=== PATIENT | male | born 1975 | race Caucasian/White ===

== ENCOUNTER 2018-06-09 22:24 | Inpatient (IN) | payer BC ==
[2018-06-09 22:40] LABS: URINE BLOOD (Dip) POC 2+ (NEGATIVE); URINE GLUCOSE (Dip) POC Negative (NEGATIVE); URINE KETONES (Dip) POC 1+ (NEGATIVE); URINE LEUKOCYTE EST (Dip) POC Negative (NEGATIVE); URINE NITRITE (Dip) POC Negative (NEGATIVE); URINE TOTAL PROTEIN POC Negative (NEGATIVE)
[2018-06-09 22:40] LABS: URINE PH (Dip) POC 5.5 (5.0-8.5)
[2018-06-09] MEDS: SOD CHLORIDE 0.9% 1,000 ML IV (22:46)
[2018-06-09] MEDS: morphine 4 MG/ML VIAL IV (22:46)
[2018-06-09] MEDS: ONDANSETRON 4 MG INJ IV ×2 (22:46→23:22)
[2018-06-09 22:52] LABS: ADD MAN DIFF? NO
[2018-06-09 22:59] LABS: ADD UMIC YES; UR ASCORBIC ACID NEGATIVE (NEGATIVE); UR BILIRUBIN (Dip) NEGATIVE (NEGATIVE); UR BLOOD (Dip) 2+ mg/dL (NEGATIVE); UR CLARITY CLEAR (CLEAR); UR COLOR YELLOW (YELLOW); UR GLUCOSE (Dip) NEGATIVE (NEGATIVE); UR KETONES (Dip) 1+ mg/dL (NEGATIVE); UR LEUKOCYTE ESTERASE (Dip) NEGATIVE Leu/ul (NEGATIVE); UR NITRITE (Dip) NEGATIVE (NEGATIVE); UR RBC 1 /HPF (0-5); UR SPECIFIC GRAVITY (Dip) 1.017 (1.003-1.030); UR TOTAL PROTEIN (Dip) NEGATIVE (NEGATIVE); UR UROBILINOGEN (Dip) NEGATIVE (NEGATIVE); UR WBC 0 /HPF (0-5)
[2018-06-09] MEDS: HYDROmorphONE 1 MG/ML SYG IV (23:22)
[2018-06-09 23:28] LABS: WHITE BLOOD COUNT 9.1 10^3/ul (4.8-10.8)
[2018-06-09 23:28] LABS: HEMATOCRIT 41.1 % (42.0-52.0); RED BLOOD COUNT 4.88 10^6/ul (4.70-6.10)
[2018-06-09 23:29] LABS: MEAN CORPUSCULAR HEMOGLOBIN 29.5 pg (29.0-33.0); MEAN CORPUSCULAR VOLUME 84.2 fl (82.0-101.0)
[2018-06-09 23:30] LABS: BASOPHILS % 0.3 % (0.0-2.0); EOSINOPHILS % 0.7 % (0.0-7.0); LYMPHOCYTES % 11.6 % (15.0-51.0); MEAN PLATELET VOLUME 9.8 fl (7.4-10.4); MONOCYTES % 6.7 % (0.0-11.0); NEUTROPHIL # 7.3 10^3/ul (1.6-7.5); NEUTROPHILS % 80.4 % (39.0-77.0); PLATELET COUNT 246 10^3/UL (140-415); RED CELL DISTRIBUTION WIDTH 12.6 % (11.5-14.5)
[2018-06-09 23:31] LABS: EOSINOPHILS # 0.1 10^3/ul (0.0-0.5); LYMPHOCYTES # 1.1 10^3/ul (0.8-2.9); MONOCYTE # 0.6 10^3/ul (0.3-0.9)
[2018-06-09 23:35] LABS: HEMOGLOBIN 14.4 g/dl (14.0-18.0)
[2018-06-09 23:41] LABS: ALBUMIN 5.2 g/dl (3.3-4.9); ALKALINE PHOSPHATASE 71 IU/L (42-121); ANION GAP 16 (8-16); ASPARTATE AMINO TRANSFERASE 68 IU/L (15-46); BILIRUBIN,INDIRECT 0.7 mg/dl (0-1.1); BILIRUBIN,TOTAL 0.7 mg/dl (0.2-1.3); BLOOD UREA NITROGEN 17 mg/dl (7-20); CALCIUM 9.2 mg/dl (8.4-10.2); CARBON DIOXIDE 23 mmol/L (21-31); CHLORIDE 104 mmol/L (97-110); CREATININE 0.88 mg/dl (0.61-1.24); GLUCOSE 104 mg/dl (70-220); LIPASE 166 U/L (23-300); SODIUM 138 mmol/L (135-144); TOTAL PROTEIN 9.5 g/dl (6.1-8.1)
[2018-06-09 23:51] LABS: TROPONIN-I < 0.012 ng/ml (0.000-0.120)
[2018-06-09 23:53] LABS: ALANINE AMINOTRANSFERASE 36 IU/L (13-69)
[2018-06-10] MEDS: LIDOCAINE/MYLANTA 40 ML BTL PO (00:28)
[2018-06-10] MEDS: HYDROmorphONE 0.5 MG/0.5 ML SYG IV ×2 (01:10→06:41)
[2018-06-10] MEDS ORDERED: ACETAMINOPHEN 500 MG TAB (01:14)
[2018-06-10] MEDS: ACETAMINOPHEN 500 MG TAB PO (01:25)
[2018-06-10] MEDS: SOD CHLORIDE 0.9% 1,000 ML IV ×2 (01:26→05:56)
[2018-06-10] MEDS: MEROPENEM 1 GM/50ML(PMX) 50 ML IVPB (02:56)
[2018-06-10] MEDS: METOCLOPRAMIDE 10 MG INJ IV (05:21)
[2018-06-10] MEDS: HYDROmorphONE 1 MG/ML SYG IV (05:21)
[2018-06-10] MEDS: ONDANSETRON 4 MG INJ IV ×2 (06:30→06:40)
[2018-06-10] MEDS ORDERED: NACL 0.9% 3 ML SYG IV (08:00)
[2018-06-10] MEDS ORDERED: morphine 2 MG INJ IV (08:00)
[2018-06-10] MEDS ORDERED: DOCUSATE SODIUM 100 MG CAP PO (08:00)
[2018-06-10] MEDS ORDERED: ONDANSETRON 4 MG INJ IV (08:00)
[2018-06-10] MEDS ORDERED: NIACIN 500 MG TAB PO (09:00)
[2018-06-10] MEDS ORDERED: NON-FORMULARY/PATIENT OWN MED (Omega-3 Acid Ethyl Esters (Lovaza) 2 GM) PO (09:00)
[2018-06-10] MEDS: GEMFIBROZIL 600 MG TAB PO ×2 (11:53→18:07)
[2018-06-10] MEDS: FAMOTIDINE 20 MG TAB PO ×2 (11:53→21:26)
[2018-06-10] MEDS: FISH OIL 1,000 MG CAP PO ×2 (11:54→21:26)
[2018-06-10] MEDS ORDERED: CYANOCOBALAMIN 1000 MCG INJ SC (12:00)
[2018-06-10 14:22] LABS: HEPATITIS B SURFACE ANTIGEN NEGATIVE (NEGATIVE)
[2018-06-10 14:40] LABS: HEPATITIS B SURFACE ANTIBODY POSITIVE (NEGATIVE)
[2018-06-10 14:40] LABS: HEPATITIS B CORE ANTIBODY NEGATIVE (NEGATIVE); HEPATITIS C VIRAL ANTIBODY NEGATIVE (NEGATIVE)
[2018-06-10] MEDS: ERGOCALCIFEROL (8000 UNITS/ML PO SYG) PO (16:11)
[2018-06-10] MEDS: ACETAMINOPHEN 325 MG TAB PO ×2 (16:11→21:26)
[2018-06-10] MEDS: CYANOCOBALAMIN 500 MCG TAB PO (16:11)
[2018-06-10] MEDS ORDERED: NON-FORMULARY/PATIENT OWN MED (Pravastatin Sodium* 40 MG) PO (21:00)
[2018-06-10] MEDS: ATORVASTATIN 10 MG TAB PO (21:26)
[2018-06-11 06:18] LABS: ADD MAN DIFF? NO
[2018-06-11 06:30] LABS: BASOPHILS % 0.1 % (0.0-2.0); EOSINOPHILS # 0.1 10^3/ul (0.0-0.5); EOSINOPHILS % 0.4 % (0.0-7.0); HEMATOCRIT 41.2 % (42.0-52.0); HEMOGLOBIN 14.6 g/dl (14.0-18.0); LYMPHOCYTES % 7.5 % (15.0-51.0); MEAN CORPUSCULAR HEMOGLOBIN 30.2 pg (29.0-33.0); MEAN CORPUSCULAR HGB CONC 35.4 g/dl (32.0-37.0); MEAN CORPUSCULAR VOLUME 85.1 fl (82.0-101.0); MEAN PLATELET VOLUME 10.4 fl (7.4-10.4); MONOCYTE # 0.9 10^3/ul (0.3-0.9); MONOCYTES % 6.8 % (0.0-11.0); NEUTROPHIL # 11.7 10^3/ul (1.6-7.5); NEUTROPHILS % 84.8 % (39.0-77.0); PLATELET COUNT 224 10^3/UL (140-415); RED BLOOD COUNT 4.84 10^6/ul (4.70-6.10); RED CELL DISTRIBUTION WIDTH 13.4 % (11.5-14.5)
[2018-06-11 06:30] LABS: WHITE BLOOD COUNT 13.8 10^3/ul (4.8-10.8)
[2018-06-11] MEDS: CYANOCOBALAMIN 500 MCG TAB PO (08:20)
[2018-06-11] MEDS: FISH OIL 1,000 MG CAP PO (08:20)
[2018-06-11] MEDS: GEMFIBROZIL 600 MG TAB PO (08:20)
[2018-06-11] MEDS: FAMOTIDINE 20 MG TAB PO (08:20)
[2018-06-11] MEDS: ACETAMINOPHEN 325 MG TAB PO (08:23)
[2018-06-11 09:04] LABS: AMYLASE 68 U/L (11-123)
[2018-06-11 09:04] LABS: HDL CHOLESTEROL 24 mg/dl (27-67); LIPASE 55 U/L (23-300)
[2018-06-11 09:05] LABS: ALANINE AMINOTRANSFERASE 44 IU/L (13-69); ALBUMIN 3.6 g/dl (3.3-4.9); ALBUMIN/GLOBULIN RATIO 0.92; ALKALINE PHOSPHATASE 79 IU/L (42-121); ANION GAP 16 (8-16); ASPARTATE AMINO TRANSFERASE 38 IU/L (15-46); BILIRUBIN,INDIRECT 0.7 mg/dl (0-1.1); BILIRUBIN,TOTAL 0.7 mg/dl (0.2-1.3); BLOOD UREA NITROGEN 7 mg/dl (7-20); CARBON DIOXIDE 24 mmol/L (21-31); CHLORIDE 103 mmol/L (97-110); CREATININE 0.94 mg/dl (0.61-1.24); GLUCOSE 86 mg/dl (70-220); SODIUM 139 mmol/L (135-144); TOTAL PROTEIN 7.5 g/dl (6.1-8.1)
[2018-06-11 09:16] LABS: CHOL/HDL RATIO 13.9 RATIO; CHOLESTEROL 335 mg/dl (100-200)
[2018-06-11 09:32] LABS: LDL CHOLESTEROL,CALCULATED 82 mg/dl; TRIGLYCERIDES 1144 mg/dl (0-149)
[2018-06-11] MEDS ORDERED: ATORVASTATIN 40 MG TAB PO (21:00)
[2018-06-11] MEDS ORDERED: FISH OIL 1,000 MG CAP PO (21:00)
[2018-06-12 04:46] LABS: HEMOGLOBIN A1C 5.1 % (0-5.9)
[2018-06-12] MEDS ORDERED: ERGOCALCIFEROL 50,000 UNIT CAP PO (09:00)
== END 2018-06-11 15:05 | disposition home or self-care (01) | DRG 642 ==
LOC: E/R 22:24 → MS1 06-10 02:45
PROVIDERS: Internal Medicine
DX: E78.4 Other hyperlipidemia (principal); K85.90 Acute pancreatitis without necrosis or infection, unspecified; R79.89 Other specified abnormal findings of blood chemistry; E53.8 Deficiency of other specified B group vitamins; E29.1 Testicular hypofunction; E55.9 Vitamin D deficiency, unspecified; E78.1 Pure hyperglyceridemia; E78.00 Pure hypercholesterolemia, unspecified
CPT/HCPCS: 36415; 74176; 80053; 80061; 81001; 81003; 82150; 83036; 83690; 84484; 85025; 86704; 86706; 86803; 87040; 87340; 93005; 96374; 96375; 96376; 99285-25

== ENCOUNTER 2019-01-06 15:26 | Emergency (ER) | payer BC ==
[2019-01-06] MEDS: SOD CHLORIDE 0.9% 1,000 ML IV (16:08)
[2019-01-06] MEDS: ONDANSETRON 4 MG INJ IV (16:12)
[2019-01-06 16:41] LABS: WHITE BLOOD COUNT 4.7 10^3/ul (4.8-10.8)
[2019-01-06 16:42] LABS: HEMATOCRIT 34.9 % (42.0-52.0); MEAN CORPUSCULAR HGB CONC 34.4 g/dl (32.0-37.0); MEAN CORPUSCULAR VOLUME 84.3 fl (82.0-101.0); RED CELL DISTRIBUTION WIDTH 13.6 % (11.5-14.5)
[2019-01-06 16:43] LABS: MEAN PLATELET VOLUME 10.3 fl (7.4-10.4); PLATELET COUNT 183 10^3/UL (140-415)
[2019-01-06 16:45] LABS: ADD MAN DIFF? YES
[2019-01-06 17:42] LABS: ALANINE AMINOTRANSFERASE 23 IU/L (13-69); ALBUMIN 4.9 g/dl (3.3-4.9); ALBUMIN/GLOBULIN RATIO 1.16; ALKALINE PHOSPHATASE 37 IU/L (42-121); ANION GAP 9 (5-13); ASPARTATE AMINO TRANSFERASE 88 IU/L (15-46); BILIRUBIN,INDIRECT 0.5 mg/dl (0-1.1); BILIRUBIN,TOTAL 0.5 mg/dl (0.2-1.3); BLOOD UREA NITROGEN 9 mg/dl (7-20); CALCIUM 8.7 mg/dl (8.4-10.2); CARBON DIOXIDE 24 mmol/L (21-31); CHLORIDE 103 mmol/L (97-110); CREATININE 0.85 mg/dl (0.61-1.24); Estimated GFR > 60 mL/min (>60); GLUCOSE 102 mg/dl (70-220); LIPASE 27 U/L (23-300); POTASSIUM 5.5 mmol/L (3.5-5.1); SODIUM 136 mmol/L (135-144); TOTAL PROTEIN 9.1 g/dl (6.1-8.1)
[2019-01-06 18:13] LABS: BAND NEUTROPHILS #M 0.7 10^3/ul (0.0-0.6); BAND NEUTROPHILS % (M) 15 % (0-4); LYMPHOCYTES # 0.5 10^3/ul (0.8-2.9); LYMPHOCYTES #M 0.4 10^3/ul (0.8-2.9); LYMPHOCYTES % (M) 10 % (15-51); MONOCYTE # 0.1 10^3/ul (0.3-0.9); MONOCYTE #M 0.1 10^3/ul (0.3-0.9); MONOCYTES % (M) 3 % (0-11); SEG NEUT #M 3.4 10^3/ul (1.7-7.5); SEGMENTED NEUTROPHILS (M) % 71 % (39-77)
== END 2019-01-06 18:12 | disposition home or self-care (01) ==
LOC: FTE 15:26
DX: R19.7 Diarrhea, unspecified (principal); R11.0 Nausea
CPT/HCPCS: 36415; 80053; 83690; 85025; 96361; 96374; 99284-25